=== PATIENT | male | born 1995 | race Caucasian/White ===

== ENCOUNTER 2021-05-06 08:23 | Emergency (ER) | payer MEDICAID ==
[~2021-05-06] VITALS: Ht 172.7 cm; Wt 67.0 kg
[2021-05-06] MEDS ORDERED: SODIUM CHLORIDE 0.9% 1,000 ML IV ONE (08:45)
[2021-05-06 09:21] LABS: BASOPHILS % 0.6 % (0.0-2.0); EOSINOPHILS % 1.1 % (0.0-5.0); HEMATOCRIT. 40.3 % (42.0-52.0); HEMOGLOBIN. 13.8 g/dL (14.0-18.0); LYMPHOCYTES % 14.4 % (20.0-50.0); MEAN CORPUSCULAR HEMOGLOBIN 29.6 pg (28.0-32.0); MEAN CORPUSCULAR VOLUME 86.8 fL (80.0-94.0); MEAN PLATELET VOLUME 8.4 fl (7.4-10.4); MONOCYTES % 7.3 % (2.0-8.0); NEUTROPHILS % 76.6 % (40.0-76.0); PLATELET 396 x1000/uL (130-400); RED BLOOD CELL COUNT 4.65 mill/uL (4.7-6.1); RED CELL DISTRIBUTION WIDTH 14.5 % (11.6-14.6)
[2021-05-06 09:30] LABS: CHLORIDE 105 mEq/L (98-107)
[2021-05-06 09:34] LABS: ETHANOL BLOOD < 10 mg/dL
[2021-05-06 12:56] VITALS: BP 132/86
== END 2021-05-06 09:56 | disposition home or self-care (01) ==
LOC: ER 08:35
DX: T40.601A Poisoning by unspecified narcotics, accidental (unintentional), initial encounter (principal); I49.9 Cardiac arrhythmia, unspecified; Y92.9 Unspecified place or not applicable
CPT/HCPCS: 36415; 71045; 76700; 80053; 80320; 85025; 93005; 96360; 99285; J7030; G0480

== ENCOUNTER 2022-08-24 09:34 | Emergency (ER) | payer SELFPAY ==
[~2022-08-24] VITALS: Ht 165.1 cm; Wt 80.0 kg
[2022-08-24 09:38] VITALS: BP 160/116
[2022-08-24] MEDS ORDERED: ACETAMINOPHEN 325MG TABLET PO ONE (09:45)
[2022-08-24] MEDS ORDERED: ACETAMINOPHEN 325MG TABLET PO NR (13:30)
[2022-08-24] MEDS ORDERED: IBUP-2029 MT (16:06)
== END 2022-08-24 16:46 | disposition home or self-care (01) ==
LOC: ER 09:34
DX: S79.811A Other specified injuries of right hip, initial encounter (principal); M85.871 Other specified disorders of bone density and structure, right ankle and foot; M25.552 Pain in left hip; V03.90XA Pedestrian on foot injured in collision with car, pick-up truck or van, unspecified whether traffic or nontraffic accident, initial encounter; Y93.89 Activity, other specified; Y92.488 Other paved roadways as the place of occurrence of the external cause; Z59.00 Homelessness unspecified
CPT/HCPCS: 72170; 72192; 73522; 73620; 73700; 99284

== ENCOUNTER 2022-09-15 02:45 | Emergency (ER) | payer SELFPAY ==
[~2022-09-15] VITALS: Ht 175.3 cm; Wt 87.0 kg
[~2022-09-15 02:45] MED LIST: IBUP-2029 MT
[2022-09-15 02:47] VITALS: BP 130/76
[2022-09-15] MEDS ORDERED: ACETAMINOPHEN 500MG TABLET PO ONE (03:45)
[2022-09-15] MEDS ORDERED: CLINDAMYCIN HCL 150MG CAPSULE PO SCH (03:45)
[2022-09-15] MEDS ORDERED: CLIN-194 MT (04:06)
[2022-09-15] MEDS ORDERED: BO1 TP (04:06)
== END 2022-09-15 05:37 | disposition home or self-care (01) ==
LOC: ER 02:45
DX: S00.83XA Contusion of other part of head, initial encounter (principal); S10.93XA Contusion of unspecified part of neck, initial encounter; X58.XXXA Exposure to other specified factors, initial encounter; Y93.89 Activity, other specified; Y92.89 Other specified places as the place of occurrence of the external cause; Y99.8 Other external cause status; F32.9 Major depressive disorder, single episode, unspecified; F12.10 Cannabis abuse, uncomplicated
CPT/HCPCS: 70450; 70486; 72125; 99284; Z7610